=== PATIENT | female | born 1965 | race Two or more races ===

== ENCOUNTER 2024-01-10 11:12 | Emergency (ER) | payer OTHER ==
[~2024-01-10] VITALS: Ht 165.1 cm; Wt 86.2 kg
[2024-01-10] MEDS ORDERED: CLONAZEPAM1 M1 (12:05)
[2024-01-10] MEDS ORDERED: KETOROLAC TROMETHAMINE 15 MG VIAL IM STA (12:16)
[2024-01-10] MEDS ORDERED: ADVIL DUAL ACT1 EACH PO (14:08)
== END 2024-01-10 14:12 | disposition home or self-care (01) ==
LOC: ER 11:12
DX: M25.569 Pain in unspecified knee (principal); Z88.7 Allergy status to serum and vaccine
CPT/HCPCS: 73560; 96372; 99283; J1885